=== PATIENT | female | born 1995 | race Caucasian/White ===

== ENCOUNTER 2018-02-01 13:09 | Inpatient (IN) | payer MEDICAID ==
[2018-02-01] MEDS ORDERED: Sodium Chloride 0.9% 10 ML Syringe FLUSH PRN (14:47)
[2018-02-01] MEDS ORDERED: Lactated Ringers 1,000 ML IV SCH (15:00)
[2018-02-01] MEDS ORDERED: Oxytocin/Lactated Ringers 10 UNIT/1,000 ML BAG IV SCH ×2 (15:00)
[2018-02-01] MEDS: Nalbuphine 20 MG/ML 1 ML Syringe IVPUSH PRN ×2 (17:46→22:19)
[2018-02-01] MEDS ORDERED: Lidocaine 1% 50 ML MDV ONE (23:57)
--- NOTE | 2018-02-02 02:07 | PCM.LDHP ---
L&D History of Present Illness - General Date of Service: 02/01/18 Admit Problem/Dx: Patient Status Order with Admit Dx/Problem 02/01/18 13:55 Patient Status [ADT] Routine Admission Diagnosis/Problem Admission Diagnosis/Problem Source of Information: Patient - History of Present Illness Introduction:: 22 year old at 39w6d here with bleeding and contractions. Scant blood on pad. - Related Data Allergies/Adverse Reactions: Allergies Allergy/AdvReac Type Severity Reaction Status Date / Time No Known Allergies Allergy Verified 01/10/18 08:30 Home Medications: Home Meds Auy565/FA/Omega3/Dha/Fish Oil [ Gummies] 2 each PO DAILY 01/10/18 [ History] Past Medical History Gastrointestinal History: Reports: None ED[employer] B[employer] History: Reports: Neurological History: Reports: Migraines - Past Surgical History GI Surgical History: Reports: Cholecystectomy Other GI Surgeries/Procedures: 2010 Neurological Surgical History: Reports: None Dermatological Surgical History: Reports: None Social & Family History - Family History Cardiac: Reports: Hypertension Respiratory: Reports: None Endocrine/Metabolic: Reports: Diabetes, type II - Tobacco Use Smoking Status *Q: Never Smoker Second Hand Smoke Exposure: No - Caffeine Use Caffeine Use: Reports: None - Recreational Drug Use Recreational Drug Use: No H&P Review of Systems - Review of Systems: Review Of Systems: See Below General: Reports: No Symptoms HEENT: Reports: No Symptoms Pulmonary: Reports: No Symptoms Cardiovascular: Reports: No Symptoms Gastrointestinal: Reports: No Symptoms Genitourinary: Reports: No Symptoms Musculoskeletal: Reports: No Symptoms Skin: Reports: No Symptoms Psychiatric: Reports: No Symptoms Neurological: Reports: No Symptoms Hematologic/Lymphatic: Reports: No Symptoms Immunologic: Reports: No Symptoms L&D Exam - Exam Exam: See Below - Vital Signs Vital Signs: Last Vital Signs Temp 36.2 C 02/01/18 13:55 Pulse 67 02/01/18 15:30 Resp BP 123/77 02/01/18 15:30 Pulse Ox Weight: 73.028 kg - OB Specific Contraction Intensity: Moderate Heart Rate (FHR) Variability: Moderate (6-25 bmp) Presentation: Vertex - See Score See Score Consistency: Soft See Score Effacement: 51-70% See Score Dilation: 3-4 cm See Score Infant's Station: +1, +2 - Exam General: Alert, Oriented HEENT: PERRLA, Conjunctiva Clear, EACs Clear, EOMI, Hearing Intact, Mucosa Moist & [place], Nares Patent, Normal Nasal Septum, Posterior Pharynx Clear, TMs Clear Neck: Supple, Trachea Midline Lungs: Clear to Auscultation, Normal Respiratory Effort Cardiovascular: Regular Rate, Regular Rhythm GI/Abdominal Exam: Normal Bowel Sounds, Soft, Non-Tender, No Organomegaly, No Distention, No Abnormal Bruit, No Mass, Pelvis Stable Back Exam: Normal Inspection, Full Range of Motion Extremities: Normal Inspection, Normal Range of Motion, Non-Tender, No Pedal Edema, Normal Capillary Refill Skin: Warm, Dry, Intact Neurological: Cranial Nerves Intact, Reflexes Equal Bilateral Psychiatric: Alert, Normal Affect, Normal Mood - Patient Data Lab Results Last 24 hrs: Laboratory Results - last 24 hr 02/01/18 Range/Units 14:57 WBC 16.97 H (3.98-10.04) K/mm3 RBC 4.24 (3.98-5.22) M/mm3 Hgb 11.9 (11.2-15.7) gm/L Hct 35.4 (34.1-44.9) % MCV 83.5 (79.4-94.8) fl MCH 28.1 (25.6-32.2) pg MCHC 33.6 (32.2-35.5) g/dl RDW Std Deviation 39.7 (36.4-46.3) fL Plt Count 265 (182-369) K/mm3 MPV 10.4 (9.4-12.3) fl Result Diagrams: 02/01/18 14:57 Problem List Initiated/Reviewed/Updated: Yes Orders Last 24hrs: Active Orders 24 hr Category Date Time Status Patient Status Manage Transfer [TRANSFER] Routine ADT 02/02/18 02:02 Active Patient Status [ADT] Routine ADT 02/01/18 13:55 Active Activity as Tolerated [RC] PFP Care 02/01/18 14:47 Active Communication Order [RC] ASDIRECTED Care 02/01/18 14:47 Active Heart Tones [RC] ASDIRECTED Care 02/01/18 14:47 Active Notify Provider [RC] PFP Care 02/01/18 14:47 Active Notify Provider [RC] PRN Care 02/01/18 14:47 Active Peripheral IV Care [RC] Q2HR Care 02/01/18 14:47 Active Vital Signs [RC] PER UNIT ROUTINE Care 02/01/18 13:55 Active BLOOD BANK HOLD SPECIMEN [BBK] Stat Lab 02/01/18 14:47 Ordered RAPID PLASMA REAGIN,RPR [CHEM] Routine Lab 02/01/18 14:57 Received Lactated Ringers [Ringers, Lactated] 1,000 ml Med 02/01/18 15:00 Active IV ASDIRECTED Nalbuphine [Nubain] Med 02/01/18 14:47 Active 10 mg IVPUSH Q2H PRN Oxytocin/Lactated Ringers [Pitocin in LR 10 Units/1,000 Med 02/01/18 15:00 Active ML] 10 unit in 1,000 ml IV .CONTINUOUS Oxytocin/Lactated Ringers [Pitocin in LR 10 Units/1,000 Med 02/01/18 15:00 Active ML] 10 unit in 1,000 ml IV TITRATE Sodium Chloride 0.9% [Saline Flush] Med 02/01/18 14:47 Active 10 ml FLUSH ASDIRECTED PRN Electronic Heart Tones Ext w TOCO [WOMSER] Oth 02/01/18 14:47 Ordered Routine Electronic Heart Tones Internal [WOMSER] Per Unit Oth 02/01/18 14:47 Ordered Routine Peripheral IV Insertion Adult [OM.PC] Routine Oth 02/01/18 14:47 Ordered Resuscitation Status Routine Resus Stat 02/01/18 13:55 Ordered Medication Orders Lactated Ringer's (Ringers, Lactated) 1,000 mls @ 100 mls/hr IV ASDIRECTED RUDDY Last Admin: 02/01/18 17:45 Dose: 100 mls/hr Oxytocin/Lactated Ringer's (Pitocin In Lr 10 Units/1,000 Ml) 10 unit in 1,000 mls @ 100 mls/hr IV .CONTINUOUS RUDDY Oxytocin/Lactated Ringer's (Pitocin In Lr 10 Units/1,000 Ml) 10 unit in 1,000 mls @ 12 mls/hr IV TITRATE RUDDY; Protocol Nalbuphine HCl (Nubain) 10 mg IVPUSH Q2H PRN PRN Reason: pain Last Admin: 02/01/18 22:19 Dose: 10 mg Admin: 02/01/18 17:46 Dose: 10 mg Sodium Chloride (Saline Flush) 10 ml FLUSH ASDIRECTED PRN PRN Reason: Keep Vein Open
--- NOTE | 2018-02-02 02:10 | PCM.DEL ---
L & D Note - General Info Date of Service: 02/02/18 - Delivery Note Labor: Augmented by ARM Delivery Outcome: Livebirth Presentation: Vertex Anesthesia Type: None Episiotomy Type: None Laceration: None Placenta: Intact, Spontaneous Cord: 3 Vessels Estimated Blood Loss: 300 Resuscitation Needed: No Score 1 min: 8 Score 5 min: 9 Delivery Comments (Free Text/Narrative):: of viable male at 149am. Induction Criteria - See Score See Score Infant's Station: +1, +2 See Score Consistency: Medium See Score Cervix Position: Posterior - Induction Gestational Age >/= 39 wks: Yes - General Info Date of Service: 02/02/18 - Patient Data Vitals - Most Recent: Last Vital Signs Temp 36.2 C 02/01/18 13:55 Pulse 67 02/01/18 15:30 Resp BP 123/77 02/01/18 15:30 Pulse Ox Weight - Most Recent: 73.028 kg Lab Results Last 24 Hours: Laboratory Results - last 24 hr 02/01/18 Range/Units 14:57 WBC 16.97 H (3.98-10.04) K/mm3 RBC 4.24 (3.98-5.22) M/mm3 Hgb 11.9 (11.2-15.7) gm/L Hct 35.4 (34.1-44.9) % MCV 83.5 (79.4-94.8) fl MCH 28.1 (25.6-32.2) pg MCHC 33.6 (32.2-35.5) g/dl RDW Std Deviation 39.7 (36.4-46.3) fL Plt Count 265 (182-369) K/mm3 MPV 10.4 (9.4-12.3) fl Med Orders - Current: Current Medications Lactated Ringer's (Ringers, Lactated) 1,000 mls @ 100 mls/hr IV ASDIRECTED [facility] Last Admin: 02/01/18 17:45 Dose: 100 mls/hr Oxytocin/Lactated Ringer's (Pitocin In Lr 10 Units/1,000 Ml) 10 unit in 1,000 mls @ 100 mls/hr IV .CONTINUOUS RUDDY Oxytocin/Lactated Ringer's (Pitocin In Lr 10 Units/1,000 Ml) 10 unit in 1,000 mls @ 12 mls/hr IV TITRATE RUDDY; Protocol Nalbuphine HCl (Nubain) 10 mg IVPUSH Q2H PRN PRN Reason: pain Last Admin: 02/01/18 22:19 Dose: 10 mg Sodium Chloride (Saline Flush) 10 ml FLUSH ASDIRECTED PRN PRN Reason: Keep Vein Open Discontinued Medications Lidocaine HCl (Xylocaine 1%) Confirm Administered Dose 50 ml .ROUTE .STK-MED ONE Stop: 02/01/18 23:58 - Problem List Review Problem List Initiated/Reviewed/Updated: Yes - My Orders Last 24 Hours: My Active Orders 02/01/18 13:55 Patient Status [ADT] Routine Vital Signs [RC] PER UNIT ROUTINE Resuscitation Status Routine 02/01/18 14:47 Activity as Tolerated [RC] PFP Communication Order [RC] ASDIRECTED Heart Tones [RC] ASDIRECTED Notify Provider [RC] PFP Notify Provider [RC] PRN Peripheral IV Care [RC] Q2HR BLOOD BANK HOLD SPECIMEN [BBK] Stat Nalbuphine [Nubain] 10 mg IVPUSH Q2H PRN Sodium Chloride 0.9% [Saline Flush] 10 ml FLUSH ASDIRECTED PRN Electronic Heart Tones Ext w TOCO [WOMSER] Routine Electronic Heart Tones Internal [WOMSER] Per Unit Routine Peripheral IV Insertion Adult [OM.PC] Routine 02/01/18 14:57 RAPID PLASMA REAGIN,RPR [CHEM] Routine 02/01/18 15:00 Lactated Ringers [Ringers, Lactated] 1,000 ml IV ASDIRECTED Oxytocin/Lactated Ringers [Pitocin in LR 10 Units/1,000 ML] 10 unit in 1,000 ml IV .CONTINUOUS Oxytocin/Lactated Ringers [Pitocin in LR 10 Units/1,000 ML] 10 unit in 1,000 ml IV TITRATE 02/02/18 02:02 Patient Status Manage Transfer [TRANSFER] Routine
[2018-02-02] MEDS ORDERED: Benzocaine/Menthol 20%-0.5% Spray 56 GM Canister TOP PRN (03:37)
[2018-02-02] MEDS ORDERED: Docusate Sodium 100 MG Cap PO PRN (03:37)
[2018-02-02] MEDS ORDERED: Lanolin 100% Cream 7 GM Tube TOP PRN (03:37)
[2018-02-02] MEDS ORDERED: Witch Hazel Medicated Pads 100/Jar TOP PRN (03:37)
[2018-02-02] MEDS: Ibuprofen 600 MG Tab PO PRN ×2 (10:04→16:35)
--- NOTE | 2018-02-03 06:50 | PCM.PNPP ---
- General Info Date of Service: 02/03/18 Functional Status: Reports: Pain Controlled, Tolerating Diet, Ambulating, Urinating - Review of Systems General: Reports: No Symptoms Pulmonary: Reports: No Symptoms Cardiovascular: Reports: No Symptoms Gastrointestinal: Reports: No Symptoms Genitourinary: Reports: No Symptoms Musculoskeletal: Reports: No Symptoms - Patient Data Vital Signs - Most Recent: Last Vital Signs Temp 36.6 C 02/03/18 02:51 Pulse 58 L 02/03/18 02:51 Resp 16 02/03/18 02:51 BP 117/65 02/03/18 02:51 Pulse Ox 100 02/03/18 02:51 Weight - Most Recent: 73.028 kg I&O - Last 24 Hours: Intake & Output 02/02/18 02/02/18 02/03/18 14:59 22:59 06:59 Intake Total 180 Balance 180 Lab Results - Last 24 Hours: Laboratory Results - last 24 hr 02/01/18 Range/Units 14:57 RPR Non-reactive (NONREACTIVE) Med Orders - Current: Current Medications Benzocaine/Menthol (Dermoplast Pain Relief [place]) 0 gm TOP ASDIRECTED PRN PRN Reason: Perineal Comfort Measure Last Admin: 02/02/18 05:00 Dose: 1 canister Docusate Sodium (Colace) 100 mg PO BID PRN PRN Reason: Constipation Emollient Ointment (Lansinoh Hpa) 0 gm TOP ASDIRECTED PRN PRN Reason: Sore Nipples Last Admin: 02/02/18 16:36 Dose: 1 applic Ibuprofen (Motrin) 600 mg PO Q6H PRN PRN Reason: Mild pain or fever Last Admin: 02/02/18 16:35 Dose: 600 mg Witch Samira (Tucks) 1 pad TOP ASDIRECTED PRN PRN Reason: Hemorrhoid pain Last Admin: 02/02/18 05:00 Dose: 1 canister Discontinued Medications Lactated Ringer's (Ringers, Lactated) 1,000 mls @ 100 mls/hr IV ASDIRECTED RUDDY Last Admin: 02/01/18 17:45 Dose: 100 mls/hr Oxytocin/Lactated Ringer's (Pitocin In Lr 10 Units/1,000 Ml) 10 unit in 1,000 mls @ 100 mls/hr IV .CONTINUOUS RUDDY Last Admin: 02/02/18 01:52 Dose: 100 mls/hr Oxytocin/Lactated Ringer's (Pitocin In Lr 10 Units/1,000 Ml) 10 unit in 1,000 mls @ 12 mls/hr IV TITRATE RUDDY; Protocol Lidocaine HCl (Xylocaine 1%) Confirm Administered Dose 50 ml .ROUTE .STK-MED ONE Stop: 02/01/18 23:58 Last Admin: 02/02/18 20:57 Dose: Not Given Nalbuphine HCl (Nubain) 10 mg IVPUSH Q2H PRN PRN Reason: pain Last Admin: 02/01/18 22:19 Dose: 10 mg Sodium Chloride (Saline Flush) 10 ml FLUSH ASDIRECTED PRN PRN Reason: Keep Vein Open - Interaction Disposition, : [place] in Room with Family Infant Interaction: Holding Infant Feeding: Attempted ; Nursed Fair/Poor, Continues to Breastfeed Support Person: Significant Other - Recovery Exam Fundal Tone: Firm Fundal Level: 1 Fingerbreadths Above Umbilicus Fundal Placement: Midline Lochia Amount: Small Lochia Color: Rubra/Red Perineum Description: Intact, Minimal Bruising/Swelling Episiotomy/Laceration: None Bladder Status: Voiding Urinary Elimination: Voided - Exam General: Alert, Oriented, Cooperative GI/Abdominal Exam: Soft, Non-Tender Extremities: Normal Inspection Skin: Warm, Dry, Intact - Problem List & Annotations (1) 39 weeks gestation of SNOMED Code(s): 92645273 Code(s): Z3A.39 - 39 WEEKS GESTATION OF Status: Acute Current Visit: Yes (2) Vaginal delivery SNOMED Code(s): 758523933 Code(s): O80 - ENCOUNTER FOR FULL-TERM UNCOMPLICATED DELIVERY Status: Acute Current Visit: Yes - Problem List Review Problem List Initiated/Reviewed/Updated: Yes - Assessment Assessment:: PPD#1 from - Plan Plan:: * Routine cares * Encourage breast feeding * Discharge home tomorrow
--- NOTE | 2018-02-04 06:44 | PCM.DCSUM1 ---
Discharge Summary - Discharge Data Discharge Date: 02/04/18 Discharge Disposition: Home, Self-Care 01 Condition: Good - Discharge Diagnosis/Problem(s) (1) 39 weeks gestation of SNOMED Code(s): 84255895 ICD Code: Z3A.39 - 39 WEEKS GESTATION OF Status: Acute (2) Vaginal delivery SNOMED Code(s): 031447848 ICD Code: O80 - ENCOUNTER FOR FULL-TERM UNCOMPLICATED DELIVERY Status: Acute - Patient Summary/Data Complications: None Consults: Consultations 02/02/18 21:01 Consult to Registered Phlebotomist Part Time [CONS] Routine Recommended Follow-up Testing/Procedures: Follow up in 3-6 weeks for check Hospital Course: 22 y/o at 39 6/7 wks presented in labor. she progressed well and underwent an uncomplicated . See delivery note for full details. she did well and was discharged home on PPD#2 - Patient Instructions Diet: Regular Diet as Tolerated Activity: As Tolerated Activity, Other: Pelvic Rest for 6 weeks Driving: May Drive Today Showering/Bathing: May Shower Showering/Bathing, Other: May Bathe Notify Provider of: Fever, Increased Pain, Swelling and Redness, Drainage, Nausea and/or Vomiting - Discharge Plan *PRESCRIPTION DRUG MONITORING PROGRAM REVIEWED*: Not Applicable *COPY OF PRESCRIPTION DRUG MONITORING REPORT IN PATIENT MIMI: Not Applicable Home Medications: Home Meds Aae589/FA/Omega3/Dha/Fish Oil [ Gummies] 2 each PO DAILY 01/10/18 [ History] Docusate Sodium [Colace] 100 mg PO BID PRN cap 02/04/18 [Rx] Ibuprofen [Motrin] 600 mg PO Q6H PRN tablet 02/04/18 [Rx] Patient Handouts: Vaginal Delivery, Care After, Tips for a Good Latch Referrals: Sharmila Talbert MD [Primary Care Provider] - (3 weeks for check) - Discharge Summary/Plan Comment DC Time >30 min.: No - Patient Data Vitals - Most Recent: Last Vital Signs Temp 36.9 C 02/04/18 02:21 Pulse 60 02/04/18 02:21 Resp 14 02/04/18 02:21 BP 127/63 02/04/18 02:21 Pulse Ox 99 02/04/18 02:21 Weight - Most Recent: 73.028 kg I&O - Last 24 hours: Intake & Output 02/03/18 02/03/18 02/04/18 14:59 22:59 06:59 Intake Total 360 570 Balance 360 570 Med Orders - Current: Current Medications Benzocaine/Menthol (Dermoplast Pain Relief [place]) 0 gm TOP ASDIRECTED PRN PRN Reason: Perineal Comfort Measure Last Admin: 02/02/18 05:00 Dose: 1 canister Docusate Sodium (Colace) 100 mg PO BID PRN PRN Reason: Constipation Last Admin: 02/03/18 15:28 Dose: 100 mg Emollient Ointment (Lansinoh Hpa) 0 gm TOP ASDIRECTED PRN PRN Reason: Sore Nipples Last Admin: 02/02/18 16:36 Dose: 1 applic Ibuprofen (Motrin) 600 mg PO Q6H PRN PRN Reason: Mild pain or fever Last Admin: 02/02/18 16:35 Dose: 600 mg Witch Samira (Tucks) 1 pad TOP ASDIRECTED PRN PRN Reason: Hemorrhoid pain Last Admin: 02/02/18 05:00 Dose: 1 canister Discontinued Medications Lactated Ringer's (Ringers, Lactated) 1,000 mls @ 100 mls/hr IV ASDIRECTED RUDDY Last Admin: 02/01/18 17:45 Dose: 100 mls/hr Oxytocin/Lactated Ringer's (Pitocin In Lr 10 Units/1,000 Ml) 10 unit in 1,000 mls @ 100 mls/hr IV .CONTINUOUS RUDDY Last Admin: 02/02/18 01:52 Dose: 100 mls/hr Oxytocin/Lactated Ringer's (Pitocin In Lr 10 Units/1,000 Ml) 10 unit in 1,000 mls @ 12 mls/hr IV TITRATE RUDDY; Protocol Lidocaine HCl (Xylocaine 1%) Confirm Administered Dose 50 ml .ROUTE .STK-MED ONE Stop: 02/01/18 23:58 Last Admin: 02/02/18 20:57 Dose: Not Given Nalbuphine HCl (Nubain) 10 mg IVPUSH Q2H PRN PRN Reason: pain Last Admin: 02/01/18 22:19 Dose: 10 mg Sodium Chloride (Saline Flush) 10 ml FLUSH ASDIRECTED PRN PRN Reason: Keep Vein Open
--- NOTE | 2018-02-04 06:44 | PCM.PNPP ---
- General Info Date of Service: 02/04/18 Functional Status: Reports: Pain Controlled, Tolerating Diet, Ambulating, Urinating - Review of Systems General: Reports: No Symptoms Pulmonary: Reports: No Symptoms Cardiovascular: Reports: No Symptoms Gastrointestinal: Reports: No Symptoms Genitourinary: Reports: No Symptoms Musculoskeletal: Reports: No Symptoms - Patient Data Vital Signs - Most Recent: Last Vital Signs Temp 36.9 C 02/04/18 02:21 Pulse 60 02/04/18 02:21 Resp 14 02/04/18 02:21 BP 127/63 02/04/18 02:21 Pulse Ox 99 02/04/18 02:21 Weight - Most Recent: 73.028 kg I&O - Last 24 Hours: Intake & Output 02/03/18 02/03/18 02/04/18 14:59 22:59 06:59 Intake Total 360 570 Balance 360 570 Med Orders - Current: Current Medications Benzocaine/Menthol (Dermoplast Pain Relief [place]) 0 gm TOP ASDIRECTED PRN PRN Reason: Perineal Comfort Measure Last Admin: 02/02/18 05:00 Dose: 1 canister Docusate Sodium (Colace) 100 mg PO BID PRN PRN Reason: Constipation Last Admin: 02/03/18 15:28 Dose: 100 mg Emollient Ointment (Lansinoh Hpa) 0 gm TOP ASDIRECTED PRN PRN Reason: Sore Nipples Last Admin: 02/02/18 16:36 Dose: 1 applic Ibuprofen (Motrin) 600 mg PO Q6H PRN PRN Reason: Mild pain or fever Last Admin: 02/02/18 16:35 Dose: 600 mg Witch Samira (Tucks) 1 pad TOP ASDIRECTED PRN PRN Reason: Hemorrhoid pain Last Admin: 02/02/18 05:00 Dose: 1 canister Discontinued Medications Lactated Ringer's (Ringers, Lactated) 1,000 mls @ 100 mls/hr IV ASDIRECTED RUDDY Last Admin: 02/01/18 17:45 Dose: 100 mls/hr Oxytocin/Lactated Ringer's (Pitocin In Lr 10 Units/1,000 Ml) 10 unit in 1,000 mls @ 100 mls/hr IV .CONTINUOUS RUDDY Last Admin: 02/02/18 01:52 Dose: 100 mls/hr Oxytocin/Lactated Ringer's (Pitocin In Lr 10 Units/1,000 Ml) 10 unit in 1,000 mls @ 12 mls/hr IV TITRATE RUDDY; Protocol Lidocaine HCl (Xylocaine 1%) Confirm Administered Dose 50 ml .ROUTE .STK-MED ONE Stop: 02/01/18 23:58 Last Admin: 02/02/18 20:57 Dose: Not Given Nalbuphine HCl (Nubain) 10 mg IVPUSH Q2H PRN PRN Reason: pain Last Admin: 02/01/18 22:19 Dose: 10 mg Sodium Chloride (Saline Flush) 10 ml FLUSH ASDIRECTED PRN PRN Reason: Keep Vein Open - Infant Interaction Infant Disposition, : [place] in Room with Family Interaction: Holding Infant Infant Feeding: Attempted ; Nursed Fair/Poor, Continues to Breastfeed Support Person: Significant Other - Recovery Exam Fundal Tone: Firm Fundal Level: 2 Fingerbreadths Below Umbilicus Fundal Placement: Midline Lochia Amount: Scant Lochia Color: Rubra/Red Perineum Description: Intact, Minimal Bruising/Swelling Episiotomy/Laceration: None Bladder Status: Voiding Urinary Elimination: Voided - Exam General: Alert, Oriented, Cooperative GI/Abdominal Exam: Soft, Non-Tender Extremities: Normal Inspection Skin: Warm, Dry, Intact - Problem List & Annotations (1) 39 weeks gestation of SNOMED Code(s): 93992557 Code(s): Z3A.39 - 39 WEEKS GESTATION OF Status: Acute (2) Vaginal delivery SNOMED Code(s): 748244081 Code(s): O80 - ENCOUNTER FOR FULL-TERM UNCOMPLICATED DELIVERY Status: Acute - Problem List Review Problem List Initiated/Reviewed/Updated: Yes - My Orders Last 24 Hours: My Active Orders 02/04/18 06:44 Ready for Discharge [RC] PER UNIT ROUTINE - Assessment Assessment:: PPD#2 from - Plan Plan:: * Routine cares * Encourage breast feeding * Discharge home today
== END 2018-02-04 11:45 | disposition home or self-care (01) | DRG 775 ==
LOC: JD.OB 13:09 → JD.OBCHECK 13:09 → JD.OB 14:47 → OBSVTOIN 02-02 01:49
PROVIDERS: ADMIT Obstetrics & Gynecology; ATTEND Obstetrics & Gynecology
PROC: 10E0XZZ Delivery of Products of Conception, External Approach (ICD-10-PCS; principal; 2018-02-02)
PROC: 10907ZC Drainage of Amniotic Fluid, Therapeutic from Products of Conception, Via Natural or Artificial Opening (ICD-10-PCS; 2018-02-02)
DX: O80 Encounter for full-term uncomplicated delivery (principal); Z3A.39 39 weeks gestation of pregnancy; Z37.0 Single live birth; Z90.49 Acquired absence of other specified parts of digestive tract
CPT/HCPCS: 36415; 59025; 59409; 85027; 86592; A9270-GY; J2300; J2590; J7120